=== PATIENT | male | born 1960 | race Caucasian/White ===

== ENCOUNTER → 2019-02-28 | Day surgery (SDC) | payer OTHER ==
[~2019-02-28] MED LIST: CLARITIN10 MG PO; NORCO 7.5-3251 EACH PO
--- NOTE | ~2019-02-28 | OP ---
[address] [address] OPERATIVE REPORT Name: LEYLA DALTON Room: [facility].#: [id number] Admission: 02/28/19 Attend Phys: Arnold Daniel MD Discharge: Date of : 62 Report #: [id number] THIS REPORT FOR: //name// CC: Storm Daniel PREOPERATIVE DIAGNOSES: Severe right carpal tunnel syndrome, severe left carpal tunnel syndrome. POSTOPERATIVE DIAGNOSES: Severe right carpal tunnel syndrome, severe left carpal tunnel syndrome. OPERATIVE PROCEDURES PERFORMED: Bilateral carpal tunnel releases. DESCRIPTION OF PROCEDURE: Under general anesthesia, routine prep and drape were performed of both hands and arms. The procedures were performed under tourniquet ischemia. Identical procedures were performed of both hands. Following the appropriate timeout procedure, a slightly curved longitudinal incision was made overlying the carpal ligament. The incision was carried through the skin, subcutaneous tissue, and palmar fascia. The flexor retinaculum was opened with dissecting scissors. A groove director was inserted under the carpal ligament and the carpal ligament was incised. Severe compression of the median nerves was noted. A neurolysis was performed. The wound edges were injected with 0.5% Marcaine solution. The wounds were closed with 3-0 Vicryl for the subcutaneous layer. The skin was closed with 4-0 nylon sutures. Sterile dressings were applied. The patient tolerated the procedures well and was returned to the recovery area in good condition. By: [id number] Daniel MD /sridevi
== END | disposition home or self-care (01) ==
LOC: M.SUR 07:56
DX: G56.03 Carpal tunnel syndrome, bilateral upper limbs (principal); E11.9 Type 2 diabetes mellitus without complications; E78.00 Pure hypercholesterolemia, unspecified; Z98.890 Other specified postprocedural states; Z79.899 Other long term (current) drug therapy; Z79.891 Long term (current) use of opiate analgesic; Z83.3 Family history of diabetes mellitus; Z90.49 Acquired absence of other specified parts of digestive tract

== ENCOUNTER → 2021-01-22 | Outpatient (CLI) | payer OTHER | LOC: M.MRI 08:18 | PROVIDERS: ATTEND Nurse Practitioner Family | DX: S46.011A Strain of muscle(s) and tendon(s) of the rotator cuff of right shoulder, initial encounter (principal); M19.011 Primary osteoarthritis, right shoulder; X58.XXXA Exposure to other specified factors, initial encounter; Y93.89 Activity, other specified; Y92.89 Other specified places as the place of occurrence of the external cause; Y99.8 Other external cause status ==